=== PATIENT | male | born 2000 | race Caucasian/White ===

== ENCOUNTER 2020-01-03 15:49 | Emergency (ER) | payer OTHER, SELFPAY ==
[2020-01-03 15:58] VITALS: BP 126/52; PULSE 65; RESP 16; TEMP 36.6; O2SAT 98
--- NOTE | 2020-01-03 16:13 | ED.HA ---
HPI - Headache General Chief Complaint: Headache Stated Complaint: headache/nausea/vision changes Time Seen by Provider: 01/03/20 16:13 Source: patient, RN notes reviewed and other (friend) Mode of arrival: ambulatory Limitations: no limitations History of Present Illness HPI Narrative: 19-year-old male who presents to doctors hospital care with complaints of headache pain to area behind both eyes which developed about 4 hours ago while at work which has progressively increased in intensity with some photophobia and blurry vision at times to right eye. Patient states that he is nauseated but has not had any emesis, describes pain as sharp and rates it a 7/10. Patient is alert and oriented X3, gait is steady denies any pressure to face or any sinus drainage, denies feelings of dizziness or equilibrium disturbance, cranial nerves intact, face symetrical, no nystagmus, eyes brisk response to light. Patient is student at [employer] states was recently home and was told sister had strep but did not actually see her, denies any sore throat, fevers or cough. MD elicited complaint: headache Pertinent past history: migraines Onset (ago): hour(s) (4) Onset description: gradually Location: other (behind both eyes) Severity: severe Pain scale (0-10): 7 Quality & Timing: sharp and constant Exacerbating factors: movement of head/neck and light Relieving factors: nothing Context: other (occurred while at work at [employer]) Associated symptoms: nausea, photophobia and other (some intermittent blurry vision right eye) Treatments prior to arrival: ibuprofen Related Data Allergies Allergy/AdvReac Type Severity Reaction Status Date / Time No Known Allergies Allergy Verified 01/03/20 15:57 Review of Systems Review of Systems: All systems reviewed & are unremarkable except as noted in HPI and below Constitutional: Constitutional: Reports as per HPI and Reports no additional constitutional complaints Eyes: Eyes: Reports as per HPI and Reports photophobia Comments: right eye blurry at times ENT: Reports system reviewed and no additional complaints, except as documented and Reports as per HPI Cardiovascular: Cardiovascular: Reports as per HPI and Reports no additional cardiovascular complaints Respiratory: Respiratory: Reports as per HPI and Reports no additional respiratory complaints Gastrointestinal: Gastrointestinal: Reports as per HPI, Reports no additional gastrointestinal complaints and Reports nausea Genitourinary: Genitourinary: Reports no additional male genitourinary complaints and Reports as per HPI Integumentary/Breasts: Skin/Breast: Reports system reviewed and no additional complaints, except as docu and Reports as per HPI Neurologic: Reports system reviewed and no additional complaints, except as documented, Reports as per HPI and Reports headache(s) Comments: behind eyes associated with nausea and photophobia, some blurry vision to right eye at times stated Psychiatric: Psychiatric: Reports no additional psychiatric complaints and Reports as per HPI Endocrine: Endocrine: Reports no additional endocrine complaints and Reports as per HPI Hematologic/Lymphatic: Hematologic/Lymphatic: Reports no additional hematologic/lymphatic complaints and Reports as per HPI Allergic/Immunologic: Allergic/Immunologic: Reports no additional allergic/immunologic complaints and Reports as per HPI PMFSH Past Medical History Medical History (Updated 01/05/20 @ 11:45 by Sharda Max NP) Migraines Surgical History Surgical History (Updated 01/05/20 @ 11:40 by Sharda Max NP) No significant past surgical history Social History Social History (Updated 01/05/20 @ 11:40 by Sharda Max NP) Smoking status: Never smoker Substance use: never Living arrangements: dorm student housing Occupation/Education: student Gender identity (if verbalized by the patient): Male Comments At time of signature, agree with nursing past medical,
[2020-01-03] MEDS: KETOROLAC (*BKC) 60 MG/2 ML VIAL IM (16:45)
== END 2020-01-03 17:22 | disposition home or self-care (01) ==
PROVIDERS: Emergency Provider Registered Nurse; PCP Pediatrics
DX: G43.009 Migraine without aura, not intractable, without status migrainosus (principal)
CPT/HCPCS: 87081; 87804; 87880; 96372; 99203; G0463; J1885